=== PATIENT | female | born 1980 | race Caucasian/White ===

== ENCOUNTER → 2024-04-16 | Outpatient (CLI) | payer OTHER | LOC: M WHC 15:00 | PROVIDERS: ATTEND Nurse Practitioner Family | DX: Z12.31 Encounter for screening mammogram for malignant neoplasm of breast (principal); N63.11 Unspecified lump in the right breast, upper outer quadrant; N63.21 Unspecified lump in the left breast, upper outer quadrant ==

== ENCOUNTER → 2024-05-24 | Outpatient (CLI) | payer OTHER | LOC: M WHC 12:07 | PROVIDERS: ATTEND Nurse Practitioner Family | DX: R92.8 Other abnormal and inconclusive findings on diagnostic imaging of breast (principal); N63.22 Unspecified lump in the left breast, upper inner quadrant | CPT/HCPCS: 76642; 77066; G0279 ==

== ENCOUNTER → 2024-06-17 | Outpatient (CLI) | payer OTHER ==
[2024-06-17 09:11] VITALS: TEMP 98.2
[2024-06-17 11:15] VITALS: BP 124/86; O2SAT 99
== END ==
LOC: M WHCPRO 09:03
PROVIDERS: ATTEND Nurse Practitioner Family
DX: N63.11 Unspecified lump in the right breast, upper outer quadrant (principal); N63.21 Unspecified lump in the left breast, upper outer quadrant

== ENCOUNTER → 2024-08-31 | Outpatient (CLI) | payer OTHER ==
[~2024-08-31] MED LIST: PROHANCE 279.3MG/ML 5ML VIAL ONE
== END ==
LOC: M PLAIMG 14:33
PROVIDERS: ATTEND Family Medicine
DX: D35.2 Benign neoplasm of pituitary gland (principal); E66.9 Obesity, unspecified